=== PATIENT | female | born 1950 | race Asian ===

== ENCOUNTER → 2016-09-19 | Outpatient (REF) | payer OTHER ==
[2016-09-19 12:45] LABS: MEAN CORPUSCULAR HEMOGLOBIN 28.7 pg (27.0-33.0); MEAN CORPUSCULAR HGB CONC 32.1 g/dl (32.0-36.5); MEAN CORPUSCULAR VOLUME 89.2 fl (80.0-96.0); RED CELL DISTRIBUTION WIDTH 12.9 % (11.5-14.5); WHITE BLOOD COUNT 5.3 K/mm3 (4.0-10.0)
[2016-09-19 13:17] LABS: ALBUMIN 3.7 GM/DL (3.2-5.2); ALBUMIN/GLOBULIN RATIO 0.84 (1.00-1.93); ALKALINE PHOSPHATASE 133 U/L (45-117); ALT/SGPT 26 U/L (12-78); ANION GAP 12 MEQ/L (8-16); AST/SGOT 20 U/L (15-37); BILIRUBIN,TOTAL 0.7 MG/DL (0.2-1.0); BLOOD UREA NITROGEN 21 MG/DL (7-18); CALCIUM LEVEL 9.3 MG/DL (8.8-10.2); CARBON DIOXIDE LEVEL 27 MEQ/L (21-32); CHLORIDE LEVEL 103 MEQ/L (98-107); CHOLESTEROL LEVEL 197 MG/DL (<200); CREATININE FOR GFR 0.92 MG/DL (0.55-1.02); FREE T4 0.95 NG/DL (0.76-1.46); GLOMERULAR FILTRATION RATE > 60.0 (>45); GLUCOSE, FASTING 136 MG/DL (80-110); POTASSIUM SERUM 4.1 MEQ/L (3.5-5.1); SODIUM LEVEL 142 MEQ/L (136-145); TOTAL PROTEIN 8.1 GM/DL (6.4-8.2); TRIGLYCERIDES LEVEL 162 MG/DL (<150)
== END ==
LOC: M SFHCPLAZ 08:55
PROVIDERS: ATTEND Physician Assistant
DX: I12.9 Hypertensive chronic kidney disease with stage 1 through stage 4 chronic kidney disease, or unspecified chronic kidney disease (principal); N18.3 Chronic kidney disease, stage 3 (moderate); E11.9 Type 2 diabetes mellitus without complications; E78.2 Mixed hyperlipidemia; E55.9 Vitamin D deficiency, unspecified

== ENCOUNTER → 2017-10-08 | Outpatient (REF) | payer OTHER ==
[2017-10-08 13:09] LABS: ANION GAP 9 MEQ/L (8-16); BLOOD UREA NITROGEN 18 MG/DL (7-18); CALCIUM LEVEL 9.4 MG/DL (8.8-10.2); CARBON DIOXIDE LEVEL 26 MEQ/L (21-32); CHLORIDE LEVEL 107 MEQ/L (98-107); CHOLESTEROL LEVEL 196 MG/DL (<200); CHOLESTEROL RISK RATIO 2.969 (<5); CREATININE FOR GFR 0.88 MG/DL (0.55-1.30); GLOMERULAR FILTRATION RATE > 60.0 (>45); GLUCOSE, FASTING 143 MG/DL (70-100); HDL CHOLESTEROL 66 MG/DL (>40); LDL CHOLESTEROL 101.6 MG/DL (<100); NON-HDL-C 130 MG/DL; POTASSIUM SERUM 3.7 MEQ/L (3.5-5.1); SODIUM LEVEL 142 MEQ/L (136-145); TRIGLYCERIDES LEVEL 142 MG/DL (<150)
[2017-10-08 13:26] LABS: CREATININE, URINE 16.8 MG/DL; MALB URINE SIEMENS 71.8 MG/L; MAU/CREAT RATIO 427.3 MCG/MG (0.0-30.0)
[2017-10-08 14:37] LABS: ESTIMATED AVERAGE GLUCOSE 140 MG/DL (60-110); HEMOGLOBIN A1c 6.5 %
[2017-10-09 10:19] LABS: TOTAL 25(OH) VITAMIN D 33.1 NG/ML (30.0-100.0)
== END ==
LOC: M SFHCPLAZ 09:38
DX: E78.2 Mixed hyperlipidemia (principal); E11.9 Type 2 diabetes mellitus without complications; I10 Essential (primary) hypertension; E55.9 Vitamin D deficiency, unspecified
CPT/HCPCS: 83036

== ENCOUNTER → 2018-03-25 | Outpatient (REF) | payer OTHER ==
[2018-03-25 12:01] LABS: HEMATOCRIT 44.4 % (36.0-47.0); HEMOGLOBIN 14.4 g/dl (12.0-15.5); MEAN CORPUSCULAR HEMOGLOBIN 29.1 pg (27.0-33.0); MEAN CORPUSCULAR HGB CONC 32.4 g/dl (32.0-36.5); MEAN CORPUSCULAR VOLUME 89.9 fl (80.0-96.0); PLATELET COUNT, AUTOMATED 240 10^3/uL (150-450); RED BLOOD COUNT 4.94 10^6/uL (4.00-5.40); RED CELL DISTRIBUTION WIDTH 13.4 % (11.5-14.5); WHITE BLOOD COUNT 6.3 10^3/uL (4.0-10.0)
[2018-03-25 12:29] LABS: ALBUMIN 4.1 GM/DL (3.2-5.2); ALKALINE PHOSPHATASE 134 U/L (45-117); ALT/SGPT 32 U/L (12-78); ANION GAP 9 MEQ/L (8-16); AST/SGOT 21 U/L (7-37); BILIRUBIN,TOTAL 0.6 MG/DL (0.2-1.0); BLOOD UREA NITROGEN 22 MG/DL (7-18); CALCIUM LEVEL 9.5 MG/DL (8.8-10.2); CARBON DIOXIDE LEVEL 27 MEQ/L (21-32); CHLORIDE LEVEL 104 MEQ/L (98-107); GLOMERULAR FILTRATION RATE > 60.0 (>45); GLUCOSE, FASTING 148 MG/DL (70-100); POTASSIUM SERUM 3.8 MEQ/L (3.5-5.1); SODIUM LEVEL 140 MEQ/L (136-145); TOTAL PROTEIN 8.2 GM/DL (6.4-8.2)
[2018-03-25 12:38] LABS: TOTAL 25(OH) VITAMIN D 40.8 NG/ML (30.0-100.0)
[2018-03-25 12:57] LABS: CREATININE, URINE 37.6 MG/DL
[2018-03-25 12:59] LABS: MAU/CREAT RATIO 510.6 MCG/MG (0.0-30.0)
[2018-03-25 13:19] LABS: ESTIMATED AVERAGE GLUCOSE 146 MG/DL (60-110); HEMOGLOBIN A1c 6.7 %
== END ==
LOC: M SFHCPLAZ 08:15
DX: N18.3 Chronic kidney disease, stage 3 (moderate) (principal); E11.9 Type 2 diabetes mellitus without complications; E55.9 Vitamin D deficiency, unspecified
CPT/HCPCS: 80053

== ENCOUNTER → 2018-11-12 | Outpatient (REF) | payer MEDICARE, OTHER ==
[2018-11-12 11:18] LABS: BLOOD UREA NITROGEN 22 MG/DL (7-18); CALCIUM LEVEL 9.6 MG/DL (8.8-10.2); CARBON DIOXIDE LEVEL 29 MEQ/L (21-32); CHLORIDE LEVEL 103 MEQ/L (98-107); CHOLESTEROL LEVEL 210 MG/DL (<200); CHOLESTEROL RISK RATIO 2.876 (<5); CREATININE FOR GFR 0.95 MG/DL (0.55-1.30); GLOMERULAR FILTRATION RATE > 60.0 (>39); GLUCOSE, FASTING 164 MG/DL (70-100); HDL CHOLESTEROL 73 MG/DL (>40); LDL CHOLESTEROL 105 MG/DL (<100); NON-HDL-C 137 MG/DL; RHEUMATOID FACTOR QUANT < 10.0 IU/ML (<15.0); SODIUM LEVEL 138 MEQ/L (136-145); TRIGLYCERIDES LEVEL 162 MG/DL (<150)
== END ==
LOC: M SFHCPLAZ 08:29
PROVIDERS: ATTEND Family Medicine
DX: M25.561 Pain in right knee (principal); E11.9 Type 2 diabetes mellitus without complications; E78.2 Mixed hyperlipidemia; I10 Essential (primary) hypertension; R80.9 Proteinuria, unspecified
CPT/HCPCS: 36415; 80048; 80061; 82043; 83036; 86200; 86431; G0463

== ENCOUNTER → 2020-01-14 | Outpatient (REF) | payer MEDICARE ==
[2020-01-14 15:02] LABS: CALCIUM LEVEL 9.8 MG/DL (8.8-10.2); CREATININE FOR GFR 0.98 MG/DL (0.55-1.30); GLOMERULAR FILTRATION RATE 59.6 (>39); POTASSIUM SERUM 4.2 MEQ/L (3.5-5.1)
== END ==
LOC: M SMT 13:41
PROVIDERS: ATTEND Family Medicine
DX: I10 Essential (primary) hypertension (principal)

== ENCOUNTER → 2020-02-20 | Outpatient (CLI) | payer MEDICARE ==
[2020-02-20 14:17] LABS: HEMOGLOBIN A1c 6.7 %
[2020-02-20 14:47] LABS: BLOOD UREA NITROGEN 19 MG/DL (7-18); CALCIUM LEVEL 9.7 MG/DL (8.8-10.2); CARBON DIOXIDE LEVEL 29 MEQ/L (21-32); CHLORIDE LEVEL 103 MEQ/L (98-107); CHOLESTEROL LEVEL 208 MG/DL (<200); CHOLESTEROL RISK RATIO 2.849 (<5); CREATININE FOR GFR 0.82 MG/DL (0.55-1.30); GLOMERULAR FILTRATION RATE > 60.0 (>39); GLUCOSE, FASTING 154 MG/DL (70-100); HDL CHOLESTEROL 73 MG/DL (>40); LDL CHOLESTEROL 102 MG/DL (<100); NON-HDL-C 135 MG/DL; SODIUM LEVEL 140 MEQ/L (136-145); TRIGLYCERIDES LEVEL 166 MG/DL (<150)
== END ==
LOC: M PLALAB 09:30
PROVIDERS: ATTEND Family Medicine
DX: E11.9 Type 2 diabetes mellitus without complications (principal); I10 Essential (primary) hypertension; E78.2 Mixed hyperlipidemia
CPT/HCPCS: 36415; 80048; 80061; 83036; G0463

== ENCOUNTER → 2020-09-23 | Outpatient (REF) | payer MEDICARE ==
[2020-09-23 11:40] LABS: BLOOD UREA NITROGEN 25 MG/DL (7-18); CARBON DIOXIDE LEVEL 26 MEQ/L (21-32); CHLORIDE LEVEL 105 MEQ/L (98-107); CHOLESTEROL LEVEL 238 MG/DL (<200); CHOLESTEROL RISK RATIO 2.674 (<5); GLOMERULAR FILTRATION RATE > 60.0 (>39); GLUCOSE, FASTING 168 MG/DL (70-100); HDL CHOLESTEROL 89 MG/DL (>40); LDL CHOLESTEROL 115 MG/DL (<100); NON-HDL-C 149 MG/DL; POTASSIUM SERUM 4.3 MEQ/L (3.5-5.1); SODIUM LEVEL 139 MEQ/L (136-145); TRIGLYCERIDES LEVEL 169 MG/DL (<150)
[2020-09-23 12:16] LABS: CREATININE, URINE 42.3 MG/DL; MAU/CREAT RATIO 1891.2 MCG/MG (0.0-30.0)
[2020-09-23 12:29] LABS: HEMOGLOBIN A1c 6.8 %
== END ==
LOC: M SFHCPLAZ 08:57
PROVIDERS: ATTEND Family Medicine
DX: N18.31 Chronic kidney disease, stage 3a (principal); E11.9 Type 2 diabetes mellitus without complications; I12.9 Hypertensive chronic kidney disease with stage 1 through stage 4 chronic kidney disease, or unspecified chronic kidney disease; E78.2 Mixed hyperlipidemia
CPT/HCPCS: 36415; 80048; 80061; 82043; 83036; G0463

== ENCOUNTER 2021-12-23 13:51 | Emergency (ER) | payer MEDICARE ==
[~2021-12-23] VITALS: Ht 167.6 cm; Wt 122.7 kg
[2021-12-23 14:55] LABS: BASO % 0.3 % (0.0-1.0); EOS # 0.1 10^3/uL (0.0-0.5); EOS % 0.4 % (0.0-3.0); HEMATOCRIT 41.3 % (36.0-47.0); HEMOGLOBIN 13.4 g/dl (12.0-15.5); LYMPH # 0.4 10^3/uL (1.5-5.0); LYMPH % 3.7 % (24.0-44.0); MEAN CORPUSCULAR HEMOGLOBIN 28.9 pg (27.0-33.0); MEAN CORPUSCULAR HGB CONC 32.4 g/dl (32.0-36.5); MONO # 0.5 10^3/uL (0.0-0.8); MONO % 4.6 % (2.0-8.0); NEUTROPHILS # 10.3 10^3/uL (1.5-8.5); NEUTROPHILS % 90.6 % (36.0-66.0); PLATELET COUNT, AUTOMATED 215 10^3/uL (150-450); RED BLOOD COUNT 4.64 10^6/uL (4.00-5.40); WHITE BLOOD COUNT 11.4 10^3/uL (4.0-10.0)
[2021-12-23] MEDS ORDERED: ACETAMINOPHEN TAB 650MG DOSE (2X325MG) PO ONE (15:40)
[2021-12-23] MEDS ORDERED: INDOMETHACIN 25 MG CAP PO ONE (15:40)
[2021-12-23] MEDS ORDERED: INDO50CA91 PO (16:18)
[2021-12-23] MEDS ORDERED: LISI20TA33 PO (17:23)
[2021-12-23] MEDS ORDERED: SIMV40TA20 PO (17:23)
[2021-12-23] MEDS ORDERED: AMLO1TAB25 PO (17:23)
[2021-12-23] MEDS ORDERED: METO100T5 PO (17:23)
[2021-12-23 17:24] VITALS: BP 151/67
== END 2021-12-23 17:25 | disposition home or self-care (01) ==
LOC: EDBD 13:51 → M ED 13:51
DX: M17.11 Unilateral primary osteoarthritis, right knee (principal); I10 Essential (primary) hypertension; E79.0 Hyperuricemia without signs of inflammatory arthritis and tophaceous disease; Z20.7 Contact with and (suspected) exposure to pediculosis, acariasis and other infestations; Z79.811 Long term (current) use of aromatase inhibitors; Z79.899 Other long term (current) drug therapy

== ENCOUNTER 2022-01-04 10:39 | Inpatient (IN) | payer MEDICARE ==
[~2022-01-04] VITALS: Ht 167.6 cm; Wt 124.9 kg
[~2022-01-04 10:39] MED LIST: AMLO1TAB25 PO; INDO50CA91 PO; LISI20TA33 PO; METO100T5 PO; SIMV40TA20 PO
[2022-01-04 11:45] LABS: BASO % 0.1 % (0.0-1.0); EOS % 0.1 % (0.0-3.0); HEMATOCRIT 40.9 % (36.0-47.0); LYMPH # 0.5 10^3/uL (1.5-5.0); LYMPH % 2.8 % (24.0-44.0); MEAN CORPUSCULAR HEMOGLOBIN 27.9 pg (27.0-33.0); MEAN CORPUSCULAR HGB CONC 31.8 g/dl (32.0-36.5); MEAN CORPUSCULAR VOLUME 87.8 fl (80.0-96.0); NEUTROPHILS # 14.6 10^3/uL (1.5-8.5); NEUTROPHILS % 90.4 % (36.0-66.0); PLATELET COUNT, AUTOMATED 311 10^3/uL (150-450); RED BLOOD COUNT 4.66 10^6/uL (4.00-5.40); WHITE BLOOD COUNT 16.2 10^3/uL (4.0-10.0)
[2022-01-04 11:58] LABS: INR 1.19; PROTHROMBIN TIME 15.5 SECONDS (12.7-14.5)
[2022-01-04 11:59] LABS: PARTIAL THROMBOPLASTIN TIME 36.1 SECONDS (25.9-37.0)
[2022-01-04 12:29] LABS: CALCIUM LEVEL 9.6 MG/DL (8.8-10.2); CREATININE FOR GFR 1.23 MG/DL (0.55-1.30); FREE T4 1.31 NG/DL (0.76-1.46); GLOMERULAR FILTRATION RATE 45.6 (>39); MAGNESIUM LEVEL 2.1 MG/DL (1.8-2.4); POTASSIUM SERUM 3.6 MEQ/L (3.5-5.1); THYROID STIMULATING HORMONE 1.62 uIU/ML (0.358-3.740)
[2022-01-04 12:36] LABS: CK-MB VALUE MASS 9.6 NG/ML (<3.6); MB/CK RELATIVE INDEX 0.33 (< OR =4)
[2022-01-04 13:20] LABS: RSV AMPLIFICATION NEGATIVE (NEGATIVE)
[2022-01-04] MEDS ORDERED: NS 500 ML IV ONE (13:25)
[2022-01-04] MEDS ORDERED: HOME MED LIST COMPLETE! XX SCH (14:50)
[2022-01-04] MEDS ORDERED: DEXTROSE 50% 50 ML SYRINGE IV PRN (17:40)
[2022-01-04] MEDS ORDERED: GLUCOSE 4GM CHEW TABLET PO PRN (17:40)
[2022-01-04] MEDS ORDERED: GLUCAGON INJ 1MG VIAL SC PRN (17:40)
[2022-01-04] MEDS: NS 1,000 ML IV SCH ×2 (17:45→21:07)
[2022-01-04 19:40] VITALS: BP 142/76
[2022-01-04] MEDS: ACETAMINOPHEN 500 MG TAB PO PRN (20:49)
[2022-01-04] MEDS: NYSTATIN 100,000 UNITS/GM TOPICAL PWD 15 GM TOP SCH (20:50)
[2022-01-04] MEDS: SIMVASTATIN 40 MG TAB PO SCH (20:50)
[2022-01-04] MEDS: METOPROLOL TARTRATE 100MG TAB PO SCH (20:53)
[2022-01-04] MEDS: HEPARIN SOD (PORCINE) 5000UNITS/ML 1ML VIAL/SYRINGE SC SCH (21:07)
[2022-01-04 22:00] VITALS: BP 146/78
[2022-01-05] MEDS: HEPARIN SOD (PORCINE) 5000UNITS/ML 1ML VIAL/SYRINGE SC SCH ×3 (05:18→21:31)
[2022-01-05 06:00] VITALS: BP 158/66
[2022-01-05] MEDS ORDERED: INSULIN LISPRO (NovoLOG) PER UNIT SC SCH (07:00)
[2022-01-05 09:13] LABS: HEMATOCRIT 38.6 % (36.0-47.0); HEMOGLOBIN 12.6 g/dl (12.0-15.5); MEAN CORPUSCULAR HEMOGLOBIN 28.7 pg (27.0-33.0); MEAN CORPUSCULAR HGB CONC 32.6 g/dl (32.0-36.5); MEAN CORPUSCULAR VOLUME 87.9 fl (80.0-96.0); PLATELET COUNT, AUTOMATED 256 10^3/uL (150-450); RED BLOOD COUNT 4.39 10^6/uL (4.00-5.40); WHITE BLOOD COUNT 11.1 10^3/uL (4.0-10.0)
[2022-01-05] MEDS: METOPROLOL TARTRATE 100MG TAB PO SCH ×2 (09:16→21:31)
[2022-01-05] MEDS: INSULIN LISPRO (NovoLOG) PER UNIT SC SCH ×3 (09:18→17:25)
[2022-01-05 09:51] LABS: HEMOGLOBIN A1c 6.8 %
[2022-01-05] MEDS: NYSTATIN 100,000 UNITS/GM TOPICAL PWD 15 GM TOP SCH ×2 (09:52→21:31)
[2022-01-05 09:58] LABS: ALBUMIN 2.4 GM/DL (3.2-5.2); ALT/SGPT 24 U/L (12-78); BILIRUBIN,TOTAL 0.8 MG/DL (0.2-1.0); BLOOD UREA NITROGEN 31 MG/DL (7-18); CALCIUM LEVEL 8.6 MG/DL (8.8-10.2); CARBON DIOXIDE LEVEL 29 MEQ/L (21-32); CHLORIDE LEVEL 105 MEQ/L (98-107); GLOMERULAR FILTRATION RATE > 60.0 (>39); GLUCOSE, FASTING 133 MG/DL (70-100); SODIUM LEVEL 141 MEQ/L (136-145); TOTAL PROTEIN 6.3 GM/DL (6.4-8.2)
[2022-01-05] MEDS ORDERED: POTASSIUM CHLORIDE 10MEQ SR TABLET PO ONE (11:30)
[2022-01-05 14:00] VITALS: BP 113/65
[2022-01-05] MEDS: NS 1,000 ML IV SCH ×2 (14:09→21:32)
[2022-01-05] MEDS: SIMVASTATIN 40 MG TAB PO SCH (21:30)
[2022-01-05] MEDS: ACETAMINOPHEN 500 MG TAB PO PRN (21:32)
[2022-01-05 22:00] VITALS: BP 116/60
[2022-01-06] MEDS: NS 1,000 ML IV SCH ×3 (03:35→20:53)
[2022-01-06 06:00] VITALS: BP 108/61
[2022-01-06] MEDS: HEPARIN SOD (PORCINE) 5000UNITS/ML 1ML VIAL/SYRINGE SC SCH ×3 (06:00→20:56)
[2022-01-06 07:02] LABS: HEMATOCRIT 39.1 % (36.0-47.0); HEMOGLOBIN 12.1 g/dl (12.0-15.5); MEAN CORPUSCULAR HEMOGLOBIN 27.9 pg (27.0-33.0); MEAN CORPUSCULAR HGB CONC 30.9 g/dl (32.0-36.5); MEAN CORPUSCULAR VOLUME 90.3 fl (80.0-96.0); PLATELET COUNT, AUTOMATED 301 10^3/uL (150-450); RED BLOOD COUNT 4.33 10^6/uL (4.00-5.40); WHITE BLOOD COUNT 9.5 10^3/uL (4.0-10.0)
[2022-01-06 07:37] LABS: ALBUMIN 2.2 GM/DL (3.2-5.2); ALT/SGPT 22 U/L (12-78); BILIRUBIN,TOTAL 0.6 MG/DL (0.2-1.0); BLOOD UREA NITROGEN 22 MG/DL (7-18); CARBON DIOXIDE LEVEL 26 MEQ/L (21-32); CHLORIDE LEVEL 109 MEQ/L (98-107); GLOMERULAR FILTRATION RATE > 60.0 (>39); GLUCOSE, FASTING 129 MG/DL (70-100); MAGNESIUM LEVEL 1.9 MG/DL (1.8-2.4); POTASSIUM SERUM 3.3 MEQ/L (3.5-5.1); SODIUM LEVEL 144 MEQ/L (136-145); TOTAL PROTEIN 6.2 GM/DL (6.4-8.2)
[2022-01-06] MEDS: INSULIN LISPRO (NovoLOG) PER UNIT SC SCH ×3 (08:23→17:25)
[2022-01-06] MEDS: NYSTATIN 100,000 UNITS/GM TOPICAL PWD 15 GM TOP SCH ×2 (08:28→20:53)
[2022-01-06] MEDS: METOPROLOL TARTRATE 100MG TAB PO SCH ×2 (08:29→20:53)
[2022-01-06 14:00] VITALS: BP 129/74
[2022-01-06] MEDS: ACETAMINOPHEN 500 MG TAB PO PRN (14:26)
[2022-01-06] MEDS ORDERED: POTASSIUM CHLORIDE 10MEQ SR TABLET PO ONE (16:25)
[2022-01-06] MEDS: SIMVASTATIN 40 MG TAB PO SCH (20:50)
[2022-01-06 22:00] VITALS: BP 132/74
[2022-01-07 05:56] LABS: HEMOGLOBIN 10.4 g/dl (12.0-15.5); MEAN CORPUSCULAR HEMOGLOBIN 28.2 pg (27.0-33.0); MEAN CORPUSCULAR HGB CONC 31.5 g/dl (32.0-36.5); MEAN CORPUSCULAR VOLUME 89.4 fl (80.0-96.0); PLATELET COUNT, AUTOMATED 255 10^3/uL (150-450); RED BLOOD COUNT 3.69 10^6/uL (4.00-5.40); WHITE BLOOD COUNT 6.1 10^3/uL (4.0-10.0)
[2022-01-07 06:00] VITALS: BP 149/66
[2022-01-07] MEDS: HEPARIN SOD (PORCINE) 5000UNITS/ML 1ML VIAL/SYRINGE SC SCH ×3 (06:02→21:00)
[2022-01-07] MEDS: NS 1,000 ML IV SCH (06:02)
[2022-01-07 06:28] LABS: ALT/SGPT 20 U/L (12-78); BILIRUBIN,TOTAL 0.7 MG/DL (0.2-1.0); BLOOD UREA NITROGEN 15 MG/DL (7-18); CALCIUM LEVEL 7.6 MG/DL (8.8-10.2); CARBON DIOXIDE LEVEL 29 MEQ/L (21-32); CHLORIDE LEVEL 111 MEQ/L (98-107); CREATININE FOR GFR 0.56 MG/DL (0.55-1.30); GLOMERULAR FILTRATION RATE > 60.0 (>39); GLUCOSE, FASTING 110 MG/DL (70-100); MAGNESIUM LEVEL 1.8 MG/DL (1.8-2.4); POTASSIUM SERUM 3.4 MEQ/L (3.5-5.1); SODIUM LEVEL 144 MEQ/L (136-145); TOTAL PROTEIN 5.5 GM/DL (6.4-8.2)
[2022-01-07 08:00] VITALS: BP 150/68
[2022-01-07] MEDS: METOPROLOL TARTRATE 100MG TAB PO SCH ×2 (08:38→20:28)
[2022-01-07] MEDS: INSULIN LISPRO (NovoLOG) PER UNIT SC SCH ×3 (08:47→18:12)
[2022-01-07] MEDS: NYSTATIN 100,000 UNITS/GM TOPICAL PWD 15 GM TOP SCH ×2 (09:00→20:29)
[2022-01-07] MEDS: ACETAMINOPHEN 500 MG TAB PO PRN (12:23)
[2022-01-07] MEDS: SIMVASTATIN 40 MG TAB PO SCH (20:28)
[2022-01-07 21:36] VITALS: BP 133/65
[2022-01-08] MEDS: HEPARIN SOD (PORCINE) 5000UNITS/ML 1ML VIAL/SYRINGE SC SCH ×3 (05:54→22:02)
[2022-01-08 06:00] VITALS: BP 160/72
[2022-01-08 06:02] LABS: HEMOGLOBIN 11.6 g/dl (12.0-15.5); MEAN CORPUSCULAR HEMOGLOBIN 28.4 pg (27.0-33.0); MEAN CORPUSCULAR HGB CONC 31.4 g/dl (32.0-36.5); MEAN CORPUSCULAR VOLUME 90.5 fl (80.0-96.0); PLATELET COUNT, AUTOMATED 261 10^3/uL (150-450); RED BLOOD COUNT 4.09 10^6/uL (4.00-5.40); WHITE BLOOD COUNT 6.8 10^3/uL (4.0-10.0)
[2022-01-08 06:38] LABS: ALBUMIN 2.2 GM/DL (3.2-5.2); ALT/SGPT 20 U/L (12-78); BILIRUBIN,TOTAL 0.5 MG/DL (0.2-1.0); BLOOD UREA NITROGEN 12 MG/DL (7-18); CALCIUM LEVEL 8.3 MG/DL (8.8-10.2); CARBON DIOXIDE LEVEL 29 MEQ/L (21-32); CHLORIDE LEVEL 108 MEQ/L (98-107); CREATININE FOR GFR 0.62 MG/DL (0.55-1.30); GLOMERULAR FILTRATION RATE > 60.0 (>39); GLUCOSE, FASTING 138 MG/DL (70-100); MAGNESIUM LEVEL 1.8 MG/DL (1.8-2.4); POTASSIUM SERUM 3.6 MEQ/L (3.5-5.1); SODIUM LEVEL 143 MEQ/L (136-145); TOTAL PROTEIN 6.1 GM/DL (6.4-8.2)
[2022-01-08] MEDS: INSULIN LISPRO (NovoLOG) PER UNIT SC SCH ×3 (08:44→17:26)
[2022-01-08] MEDS: METOPROLOL TARTRATE 100MG TAB PO SCH ×2 (08:45→20:26)
[2022-01-08] MEDS: NYSTATIN 100,000 UNITS/GM TOPICAL PWD 15 GM TOP SCH ×2 (09:00→20:26)
[2022-01-08 14:00] VITALS: BP 143/68
[2022-01-08] MEDS: SIMVASTATIN 40 MG TAB PO SCH (20:26)
[2022-01-08] MEDS: ACETAMINOPHEN 500 MG TAB PO PRN (20:34)
[2022-01-08 22:00] VITALS: BP 165/83
[2022-01-09] MEDS: HEPARIN SOD (PORCINE) 5000UNITS/ML 1ML VIAL/SYRINGE SC SCH ×3 (05:47→20:13)
[2022-01-09 06:00] VITALS: BP 163/86
[2022-01-09 06:09] LABS: HEMATOCRIT 38.3 % (36.0-47.0); HEMOGLOBIN 12.3 g/dl (12.0-15.5); MEAN CORPUSCULAR HEMOGLOBIN 28.3 pg (27.0-33.0); MEAN CORPUSCULAR HGB CONC 32.1 g/dl (32.0-36.5); PLATELET COUNT, AUTOMATED 232 10^3/uL (150-450); RED BLOOD COUNT 4.35 10^6/uL (4.00-5.40); WHITE BLOOD COUNT 7.4 10^3/uL (4.0-10.0)
[2022-01-09 06:48] LABS: ALBUMIN 2.6 GM/DL (3.2-5.2); ALT/SGPT 21 U/L (12-78); BILIRUBIN,TOTAL 0.7 MG/DL (0.2-1.0); BLOOD UREA NITROGEN 12 MG/DL (7-18); CALCIUM LEVEL 8.5 MG/DL (8.8-10.2); CARBON DIOXIDE LEVEL 29 MEQ/L (21-32); CHLORIDE LEVEL 104 MEQ/L (98-107); CREATININE FOR GFR 0.72 MG/DL (0.55-1.30); GLOMERULAR FILTRATION RATE > 60.0 (>39); GLUCOSE, FASTING 145 MG/DL (70-100); MAGNESIUM LEVEL 1.8 MG/DL (1.8-2.4); POTASSIUM SERUM 3.6 MEQ/L (3.5-5.1); SODIUM LEVEL 137 MEQ/L (136-145); TOTAL PROTEIN 6.5 GM/DL (6.4-8.2)
[2022-01-09] MEDS: INSULIN LISPRO (NovoLOG) PER UNIT SC SCH ×3 (08:43→17:51)
[2022-01-09] MEDS: METOPROLOL TARTRATE 100MG TAB PO SCH ×2 (08:44→20:13)
[2022-01-09] MEDS: NYSTATIN 100,000 UNITS/GM TOPICAL PWD 15 GM TOP SCH ×2 (08:44→20:14)
[2022-01-09 09:00] VITALS: BP 163/86
[2022-01-09 14:00] VITALS: BP 171/86
[2022-01-09 19:39] VITALS: BP 165/82
[2022-01-09] MEDS: SIMVASTATIN 40 MG TAB PO SCH (20:13)
[2022-01-09] MEDS: ACETAMINOPHEN 500 MG TAB PO PRN (20:14)
[2022-01-10] MEDS: HEPARIN SOD (PORCINE) 5000UNITS/ML 1ML VIAL/SYRINGE SC SCH ×3 (06:18→20:45)
[2022-01-10 06:20] VITALS: BP 170/83
[2022-01-10 06:30] LABS: HEMATOCRIT 37.3 % (36.0-47.0); HEMOGLOBIN 11.9 g/dl (12.0-15.5); MEAN CORPUSCULAR HEMOGLOBIN 28.3 pg (27.0-33.0); MEAN CORPUSCULAR HGB CONC 31.9 g/dl (32.0-36.5); MEAN CORPUSCULAR VOLUME 88.8 fl (80.0-96.0); PLATELET COUNT, AUTOMATED 283 10^3/uL (150-450); WHITE BLOOD COUNT 6.2 10^3/uL (4.0-10.0)
[2022-01-10 07:10] LABS: ALBUMIN 2.4 GM/DL (3.2-5.2); ALT/SGPT 32 U/L (12-78); BILIRUBIN,TOTAL 0.7 MG/DL (0.2-1.0); BLOOD UREA NITROGEN 13 MG/DL (7-18); CALCIUM LEVEL 8.7 MG/DL (8.8-10.2); CARBON DIOXIDE LEVEL 30 MEQ/L (21-32); CHLORIDE LEVEL 102 MEQ/L (98-107); CREATININE FOR GFR 0.69 MG/DL (0.55-1.30); GLOMERULAR FILTRATION RATE > 60.0 (>39); GLUCOSE, FASTING 140 MG/DL (70-100); MAGNESIUM LEVEL 1.8 MG/DL (1.8-2.4); POTASSIUM SERUM 3.4 MEQ/L (3.5-5.1); SODIUM LEVEL 136 MEQ/L (136-145); TOTAL PROTEIN 6.2 GM/DL (6.4-8.2)
[2022-01-10] MEDS: INSULIN LISPRO (NovoLOG) PER UNIT SC SCH ×4 (08:43→20:45)
[2022-01-10] MEDS: METOPROLOL TARTRATE 100MG TAB PO SCH ×2 (08:44→20:44)
[2022-01-10] MEDS: NYSTATIN 100,000 UNITS/GM TOPICAL PWD 15 GM TOP SCH ×2 (08:44→20:42)
[2022-01-10] MEDS: ACETAMINOPHEN 500 MG TAB PO PRN (20:44)
[2022-01-10] MEDS: SIMVASTATIN 40 MG TAB PO SCH (20:45)
[2022-01-10 21:10] VITALS: BP 155/79
[2022-01-10 21:11] VITALS: BP 155/79
[2022-01-11] MEDS: HEPARIN SOD (PORCINE) 5000UNITS/ML 1ML VIAL/SYRINGE SC SCH ×3 (05:33→21:16)
[2022-01-11 06:00] VITALS: BP 174/81
[2022-01-11 07:33] LABS: HEMATOCRIT 37.6 % (36.0-47.0); HEMOGLOBIN 12.1 g/dl (12.0-15.5); MEAN CORPUSCULAR HEMOGLOBIN 28.8 pg (27.0-33.0); MEAN CORPUSCULAR HGB CONC 32.2 g/dl (32.0-36.5); MEAN CORPUSCULAR VOLUME 89.5 fl (80.0-96.0); PLATELET COUNT, AUTOMATED 195 10^3/uL (150-450)
[2022-01-11 07:49] LABS: ALBUMIN 2.3 GM/DL (3.2-5.2); ALT/SGPT 35 U/L (12-78); BILIRUBIN,TOTAL 0.6 MG/DL (0.2-1.0); BLOOD UREA NITROGEN 20 MG/DL (7-18); CALCIUM LEVEL 8.9 MG/DL (8.8-10.2); CARBON DIOXIDE LEVEL 28 MEQ/L (21-32); CHLORIDE LEVEL 105 MEQ/L (98-107); CREATININE FOR GFR 0.72 MG/DL (0.55-1.30); GLOMERULAR FILTRATION RATE > 60.0 (>39); GLUCOSE, FASTING 147 MG/DL (70-100); POTASSIUM SERUM 3.5 MEQ/L (3.5-5.1); SODIUM LEVEL 141 MEQ/L (136-145); TOTAL PROTEIN 6.1 GM/DL (6.4-8.2)
[2022-01-11 07:50] LABS: MAGNESIUM LEVEL 1.9 MG/DL (1.8-2.4)
[2022-01-11] MEDS: INSULIN LISPRO (NovoLOG) PER UNIT SC SCH ×4 (09:14→21:00)
[2022-01-11] MEDS: lisinopriL 40MG TAB PO SCH (09:15)
[2022-01-11] MEDS: METOPROLOL TARTRATE 100MG TAB PO SCH ×2 (09:15→21:13)
[2022-01-11] MEDS: NYSTATIN 100,000 UNITS/GM TOPICAL PWD 15 GM TOP SCH ×2 (09:16→21:45)
[2022-01-11] MEDS: NIFEdipine 30 MG XL TAB PO SCH (12:08)
[2022-01-11] MEDS: SIMVASTATIN 40 MG TAB PO SCH (21:13)
[2022-01-11] MEDS: ACETAMINOPHEN 500 MG TAB PO PRN (21:14)
[2022-01-12] MEDS: HEPARIN SOD (PORCINE) 5000UNITS/ML 1ML VIAL/SYRINGE SC SCH ×3 (05:37→21:09)
[2022-01-12 06:00] VITALS: BP 156/74
[2022-01-12] MEDS: INSULIN LISPRO (NovoLOG) PER UNIT SC SCH ×4 (08:58→21:00)
[2022-01-12] MEDS: lisinopriL 40MG TAB PO SCH (09:00)
[2022-01-12] MEDS: NIFEdipine 30 MG XL TAB PO SCH (09:00)
[2022-01-12] MEDS: METOPROLOL TARTRATE 100MG TAB PO SCH ×2 (09:01→21:10)
[2022-01-12] MEDS: NYSTATIN 100,000 UNITS/GM TOPICAL PWD 15 GM TOP SCH ×2 (09:01→21:10)
[2022-01-12] MEDS: SIMVASTATIN 40 MG TAB PO SCH (21:10)
[2022-01-13] MEDS: HEPARIN SOD (PORCINE) 5000UNITS/ML 1ML VIAL/SYRINGE SC SCH ×3 (06:36→22:06)
[2022-01-13 06:53] VITALS: BP 143/68
[2022-01-13] MEDS: METOPROLOL TARTRATE 100MG TAB PO SCH ×2 (08:14→20:35)
[2022-01-13] MEDS: NIFEdipine 30 MG XL TAB PO SCH (08:14)
[2022-01-13] MEDS: lisinopriL 40MG TAB PO SCH (08:14)
[2022-01-13] MEDS: INSULIN LISPRO (NovoLOG) PER UNIT SC SCH ×4 (08:15→21:00)
[2022-01-13] MEDS: NYSTATIN 100,000 UNITS/GM TOPICAL PWD 15 GM TOP SCH ×2 (08:15→20:35)
[2022-01-13] MEDS: SIMVASTATIN 40 MG TAB PO SCH (20:33)
[2022-01-14] MEDS: HEPARIN SOD (PORCINE) 5000UNITS/ML 1ML VIAL/SYRINGE SC SCH ×3 (05:09→19:56)
[2022-01-14 06:29] VITALS: BP 176/76
[2022-01-14] MEDS: INSULIN LISPRO (NovoLOG) PER UNIT SC SCH ×4 (07:53→21:00)
[2022-01-14] MEDS: lisinopriL 40MG TAB PO SCH (07:57)
[2022-01-14] MEDS: NIFEdipine 30 MG XL TAB PO SCH (07:57)
[2022-01-14] MEDS: METOPROLOL TARTRATE 100MG TAB PO SCH ×2 (07:57→19:52)
[2022-01-14] MEDS: NYSTATIN 100,000 UNITS/GM TOPICAL PWD 15 GM TOP SCH ×2 (07:58→19:56)
[2022-01-14 08:30] VITALS: BP 163/74
[2022-01-14] MEDS: SIMVASTATIN 40 MG TAB PO SCH (19:55)
[2022-01-15] MEDS: HEPARIN SOD (PORCINE) 5000UNITS/ML 1ML VIAL/SYRINGE SC SCH ×3 (05:03→21:18)
[2022-01-15 06:00] VITALS: BP 159/73
[2022-01-15] MEDS: INSULIN LISPRO (NovoLOG) PER UNIT SC SCH ×4 (08:30→21:00)
[2022-01-15] MEDS: lisinopriL 40MG TAB PO SCH (08:30)
[2022-01-15] MEDS: METOPROLOL TARTRATE 100MG TAB PO SCH ×2 (08:33→21:18)
[2022-01-15] MEDS: NIFEdipine 30 MG XL TAB PO SCH (08:33)
[2022-01-15] MEDS: NYSTATIN 100,000 UNITS/GM TOPICAL PWD 15 GM TOP SCH ×2 (08:34→21:18)
[2022-01-15] MEDS: SIMVASTATIN 40 MG TAB PO SCH (21:18)
[2022-01-16] MEDS: HEPARIN SOD (PORCINE) 5000UNITS/ML 1ML VIAL/SYRINGE SC SCH ×3 (05:24→20:39)
[2022-01-16 05:43] VITALS: BP 156/74
[2022-01-16] MEDS: INSULIN LISPRO (NovoLOG) PER UNIT SC SCH ×4 (07:44→21:00)
[2022-01-16] MEDS: METOPROLOL TARTRATE 100MG TAB PO SCH ×2 (07:45→20:38)
[2022-01-16] MEDS: lisinopriL 40MG TAB PO SCH (07:45)
[2022-01-16] MEDS: NIFEdipine 30 MG XL TAB PO SCH (07:45)
[2022-01-16] MEDS: NYSTATIN 100,000 UNITS/GM TOPICAL PWD 15 GM TOP SCH ×2 (07:46→20:38)
[2022-01-16] MEDS: SIMVASTATIN 40 MG TAB PO SCH (20:38)
[2022-01-17 00:43] VITALS: BP 150/86
[2022-01-17] MEDS: HEPARIN SOD (PORCINE) 5000UNITS/ML 1ML VIAL/SYRINGE SC SCH (06:39)
[2022-01-17] MEDS: INSULIN LISPRO (NovoLOG) PER UNIT SC SCH ×2 (07:59→12:00)
[2022-01-17] MEDS: lisinopriL 40MG TAB PO SCH (08:00)
[2022-01-17 08:03] VITALS: BP 149/65
[2022-01-17] MEDS: METOPROLOL TARTRATE 100MG TAB PO SCH (08:03)
[2022-01-17] MEDS: NIFEdipine 30 MG XL TAB PO SCH (08:03)
[2022-01-17] MEDS: NYSTATIN 100,000 UNITS/GM TOPICAL PWD 15 GM TOP SCH (08:04)
[2022-01-17] MEDS ORDERED: METF500T13 PO (09:49)
== END 2022-01-17 12:20 | disposition home health service (06) | DRG 558 ==
LOC: M ED 10:39 → EDBD 10:39 → M ED INP 17:26 → M MS5PR 19:40
PROVIDERS: ADMIT Family Medicine; ATTEND Internal Medicine
PROC: 0HBQXZZ Excision of Finger Nail, External Approach (ICD-10-PCS; principal; 2022-01-12)
DX: M62.82 Rhabdomyolysis (principal); Z68.41 Body mass index [BMI] 40.0-44.9, adult; I12.9 Hypertensive chronic kidney disease with stage 1 through stage 4 chronic kidney disease, or unspecified chronic kidney disease; E11.22 Type 2 diabetes mellitus with diabetic chronic kidney disease; N18.30 Chronic kidney disease, stage 3 unspecified; R21 Rash and other nonspecific skin eruption; R60.0 Localized edema; D72.829 Elevated white blood cell count, unspecified; M17.11 Unilateral primary osteoarthritis, right knee; R53.1 Weakness; L89.322 Pressure ulcer of left buttock, stage 2; L89.316 Pressure-induced deep tissue damage of right buttock; E66.01 Morbid (severe) obesity due to excess calories; I87.8 Other specified disorders of veins; Z79.899 Other long term (current) drug therapy; E78.5 Hyperlipidemia, unspecified; L60.0 Ingrowing nail

== ENCOUNTER 2022-04-18 11:05 | Emergency (ER) | payer MEDICARE ==
[~2022-04-18 11:05] MED LIST changes: +METF500T13 PO
[2022-04-18] MEDS ORDERED: EPINEPHrine 1MG/10ML SYRINGE 1.5IN ONE (11:06)
[2022-04-18] MEDS ORDERED: SODIUM BICARBONATE 8.4% INJ 50 ML SYRINGE ONE (11:06)
[2022-04-18] MEDS ORDERED: ETOMIDATE INJ 20MG/10ML VIAL ONE (11:06)
[2022-04-18] MEDS ORDERED: ROCURONIUM BROMIDE 50 MG/5 ML VIAL ONE (11:06)
[2022-04-18] MEDS ORDERED: AMIODARONE 150MG/3ML INJ (J0282) ONE (11:06)
[2022-04-18] MEDS ORDERED: NS 1,000 ML IV ONE ×2 (11:35→12:30)
[2022-04-18 12:09] LABS: ABG BASE EXCESS -15.7 (-2.0-2.0); ABG HCO3 7.6 MEQ/L (22.0-26.0); ABG O2 SATURATION 98.6 % (95.0-99.0); ABG PARTIAL PRESSURE O2 162.1 mmHg (75.0-100.0); ABG STANDARD HCO3 12.6 MEQ/L (22.0-26.0); ABG pH (ARTERIAL) 7.325 UNITS (7.350-7.450)
[2022-04-18 12:11] LABS: ABG PARTIAL PRESSURE CO2 14.9 mmHg (35.0-45.0)
[2022-04-18 12:11] LABS: HEMATOCRIT 40.2 % (36.0-47.0); HEMOGLOBIN 12.6 g/dl (12.0-15.5); MEAN CORPUSCULAR HEMOGLOBIN 27.5 pg (27.0-33.0); MEAN CORPUSCULAR HGB CONC 31.3 g/dl (32.0-36.5); MEAN CORPUSCULAR VOLUME 87.6 fl (80.0-96.0); RED BLOOD COUNT 4.59 10^6/uL (4.00-5.40); WHITE BLOOD COUNT 8.5 10^3/uL (4.0-10.0)
[2022-04-18 12:23] VITALS: BP 114/82
[2022-04-18 12:26] LABS: PLATELET COUNT, AUTOMATED 97 10^3/uL (150-450)
[2022-04-18 12:28] LABS: ANISOCYTOSIS 1+; ATYPICAL LYMPH 1 % (0-5); LYMPHOCYTES 12 % (16-44); NEUTROPHILS 87 % (28-66); PLATELET ESTIMATE DECREASED (NORMAL)
[2022-04-18 12:29] LABS: OVALOCYTES 1+
[2022-04-18 12:45] LABS: RSV AMPLIFICATION NEGATIVE (NEGATIVE)
[2022-04-18] MEDS ORDERED: ROCURONIUM BROMIDE 50 MG/5 ML VIAL IV ONE (12:45)
[2022-04-18] MEDS ORDERED: ETOMIDATE INJ 20MG/10ML VIAL IV ONE (12:45)
[2022-04-18] MEDS ORDERED: SODIUM BICARBONATE 8.4% INJ 50 ML SYRINGE As Ordered ONE (13:17)
[2022-04-18 13:20] LABS: ALBUMIN 2.2 G/DL (3.2-5.2); BILIRUBIN,DIRECT 0.3 MG/DL (<0.4); BILIRUBIN,TOTAL 0.7 MG/DL (0.3-1.2); CALCIUM LEVEL 8.8 MG/DL (8.3-10.6); CK-MB VALUE MASS 14.7 NG/ML (<3.6); CREATININE FOR GFR 5.69 MG/DL (0.55-1.30); GLOMERULAR FILTRATION RATE 7.8 (>39); MB/CK RELATIVE INDEX 6.22 (< OR =4); POTASSIUM SERUM 4.4 MMOL/L (3.5-5.1); THYROID STIMULATING HORMONE 2.199 uIU/ML (0.55-4.78); TOTAL PROTEIN 6.4 G/DL (5.7-8.2)
== END 2022-04-18 18:12 | disposition expired ==
LOC: M ED 11:05 → EDBD 11:05 → M ED 18:12
DX: I46.9 Cardiac arrest, cause unspecified (principal); I48.0 Paroxysmal atrial fibrillation; E11.9 Type 2 diabetes mellitus without complications; I10 Essential (primary) hypertension; E78.5 Hyperlipidemia, unspecified; N18.9 Chronic kidney disease, unspecified; Z79.4 Long term (current) use of insulin; Z79.811 Long term (current) use of aromatase inhibitors; Z79.899 Other long term (current) drug therapy
CPT/HCPCS: 31500; 36600; 80048; 80076; 82550; 82553; 82803; 83605; 84443; 84484; 85025; 85049; 85055; 87631; 92950; 93005; 93041; 94760; 99285; J0171; J0282